=== PATIENT | female | born 1940 | race Caucasian/White ===

== ENCOUNTER 2016-07-01 08:30 | Emergency (ER) | payer OTHER ==
[~2016-07-01] VITALS: Ht 157.5 cm; Wt 57.9 kg
[~2016-07-01 08:30] MED LIST: CIPRODEX OTIC7.5 ML BOTH EARS; IRON325 MG PO; LISINOPRIL20 MG PO; LISINOPRIL40 MG PO; LORTAB 5-325 M1 EACH PO; PANTOPRAZOLE SO40 MG PO; SKELAXIN800 MG PO; SUCRALFATE1 GM/10 ML PO; ZANTAC150 MG PO
[2016-07-01] MEDS ORDERED: IBUPROFEN600 MG PO (10:41)
[2016-07-01] MEDS ORDERED: FLEXERIL10 MG PO (10:41)
[2016-07-01] MEDS ORDERED: LIDODERM 5% P1 PATCH TD (10:41)
[2016-07-01 10:59] VITALS: BP 154/82
== END 2016-07-01 11:01 | disposition home or self-care (01) ==
LOC: EME 08:30
DX: S16.1XXA Strain of muscle, fascia and tendon at neck level, initial encounter (principal); X58.XXXA Exposure to other specified factors, initial encounter; G89.29 Other chronic pain; H92.02 Otalgia, left ear; Z96.22 Myringotomy tube(s) status; I10 Essential (primary) hypertension
CPT/HCPCS: 70490; 99281; 99284

== ENCOUNTER → 2017-10-16 | Outpatient (CLI) | payer OTHER ==
[~2017-10-16] MED LIST changes: +FLEXERIL10 MG PO; +IBUPROFEN600 MG PO; +LIDODERM 5% P1 PATCH TD
== END | disposition home or self-care (01) ==
LOC: NUC 08:30
DX: I25.10 Atherosclerotic heart disease of native coronary artery without angina pectoris (principal)
CPT/HCPCS: 78452; 93017; A9500; J2785

== ENCOUNTER 2017-11-21 09:53 | Day surgery (SDC) | payer OTHER ==
[~2017-11-21] VITALS: Ht 147.3 cm; Wt 58.0 kg
[~2017-11-21 09:53] MED LIST changes: +ASPIRIN81 M2 PO; +ATORVASTATIN CA20 MG PO; +ICY HOT PATCH1 PATCH TD; +MECLIZINE HCL25 MG PO; +METOPROLOL TART25 MG PO; +NITROSTAT0.4 MG SL; +TIZANIDINE HCL4 M1 PO
== END 2017-11-21 17:10 | disposition home or self-care (01) ==
LOC: CATH 09:53
DX: I25.10 Atherosclerotic heart disease of native coronary artery without angina pectoris (principal); I10 Essential (primary) hypertension; E78.2 Mixed hyperlipidemia; K21.9 Gastro-esophageal reflux disease without esophagitis
CPT/HCPCS: C1769; C1887; J1644; J2250; J3010

== ENCOUNTER 2017-12-10 01:59 | Observation (INO) | payer OTHER ==
[~2017-12-10] VITALS: Ht 152.4 cm; Wt 112.6 kg
[2017-12-10 03:48] LABS: HEMATOCRIT 34.3 % (36.0-46.0); HEMOGLOBIN 11.6 G/DL (11.9-15.5); MCH 31.8 PG (29.0-34.0); MCHC 33.8 G/DL (30.0-36.0); PLATELET COUNT 185 K/uL (156-360); RBC DIS.WIDTH-CV 11.9 % (11.8-14.6); RBC DIS.WIDTH-SD 41.4 % (39-53); RED BLOOD COUNT 3.65 M/uL (3.80-5.20); WHITE BLOOD COUNT 7.1 K/uL (4.1-10.2)
[2017-12-10 03:56] LABS: ALBUMIN 3.7 g/dL (3.2-4.8); CHLORIDE 104 mEq/L (99-109); POTASSIUM 4.4 mEq/L (3.7-5.4); SODIUM 135 mEq/L (136-147)
[2017-12-10 03:59] LABS: GLUCOSE 125 mg/dL (70-99); TOTAL PROTEIN 6.4 g/dL (6.4-8.3)
[2017-12-10 04:01] LABS: TOTAL BILIRUBIN 0.3 mg/dL (0.0-1.0)
[2017-12-10 04:02] LABS: ALKALINE PHOSPHATASE 97 IU/L (3-129); CREATININE 0.7 mg/dL (0.6-1.3); GFR ESTIMATE (CALCULATED) > 59 mL/min/
[2017-12-10 04:03] LABS: UREA NITROGEN (BUN) 18 mg/dL (9-23)
[2017-12-10 04:04] LABS: AST (GOT) 30 IU/L (2-34)
[2017-12-10 04:05] LABS: ALT (GPT) 29 IU/L (3-49)
[2017-12-10 04:16] LABS: ERTH.SED.RATE 14 MM/HR (0-30)
[2017-12-10] MEDS ORDERED: PROTONIX40 MG PO (04:19)
[2017-12-10 04:39] VITALS: BP 189/79
[2017-12-10 04:39] LABS: C-REACTIVE PROTEIN 1.3 MG/L (0-10)
[2017-12-10 05:25] VITALS: BP 176/72
[2017-12-10 08:49] VITALS: BP 145/65
[2017-12-10] MEDS ORDERED: BENADRYL25 MG PO (11:02)
== END 2017-12-10 12:00 | disposition home or self-care (01) ==
LOC: EME 01:59 → EDOF 03:46 → 4SOUTH 04:29
PROVIDERS: Physician Assistant
DX: T78.3XXA Angioneurotic edema, initial encounter (principal); I10 Essential (primary) hypertension; E78.5 Hyperlipidemia, unspecified; K21.9 Gastro-esophageal reflux disease without esophagitis; D64.9 Anemia, unspecified; Z87.11 Personal history of peptic ulcer disease; Z88.2 Allergy status to sulfonamides; Z88.8 Allergy status to other drugs, medicaments and biological substances
CPT/HCPCS: 80053; 85027; 85651; 86140; 86160; 99281; 99284; G0378; J0360; J1200; J2930; J7030; J7040; S0028

== ENCOUNTER 2017-12-16 16:53 | Emergency (ER) | payer OTHER ==
[~2017-12-16] VITALS: Ht 152.4 cm; Wt 58.0 kg
[~2017-12-16 16:53] MED LIST changes: +BENADRYL25 MG PO; +PROTONIX40 MG PO
[2017-12-16 18:02] LABS: HEMATOCRIT 38.3 % (36.0-46.0); HEMOGLOBIN 13.1 G/DL (11.9-15.5); MCH 31.8 PG (29.0-34.0); MCHC 34.2 G/DL (30.0-36.0); RBC DIS.WIDTH-CV 12.1 % (11.8-14.6); RBC DIS.WIDTH-SD 41.7 % (39-53); RED BLOOD COUNT 4.12 M/uL (3.80-5.20); WHITE BLOOD COUNT 9.4 K/uL (4.1-10.2)
[2017-12-16 18:21] LABS: PLATELET COUNT 258 K/uL (156-360)
[2017-12-16 18:27] LABS: ALBUMIN 4.1 g/dL (3.2-4.8); SODIUM 132 mEq/L (136-147)
[2017-12-16 18:28] LABS: CHLORIDE 91 mEq/L (99-109)
[2017-12-16 18:29] LABS: GLUCOSE 140 mg/dL (70-99)
[2017-12-16 18:33] LABS: ALKALINE PHOSPHATASE 104 IU/L (3-129); CREATININE 0.8 mg/dL (0.6-1.3); GFR ESTIMATE (CALCULATED) > 59 mL/min/; TROP-I INTERPRETATION NEGATIVE; TROPONIN-I < 0.01 ng/mL (0.0-0.30)
[2017-12-16 18:34] LABS: UREA NITROGEN (BUN) 21 mg/dL (9-23)
[2017-12-16 18:35] LABS: AST (GOT) 22 IU/L (2-34)
[2017-12-16 18:36] LABS: ALT (GPT) 23 IU/L (3-49); LIPASE 18 U/L (1.0-51.0)
[2017-12-16 18:47] LABS: TOTAL BILIRUBIN 0.7 mg/dL (0.0-1.0); TOTAL PROTEIN 7.8 g/dL (6.4-8.3)
[2017-12-16 19:27] LABS: APPEARANCE CLEAR ((CLEAR)); BILIRUBIN NEGATIVE; BLOOD NEGATIVE; COLOR COLORLESS ((YELLOW)); GLUCOSE (STRIP) NEGATIVE; KETONES NEGATIVE; LEUKOCYTES NEGATIVE; NITRITE NEGATIVE; PROTEIN (STRIP) NEGATIVE; SPECIFIC GRAVITY 1.008 (1.000-1.030); UROBILINOGEN 0.2 MG/DL (0.2-1.0)
[2017-12-16] MEDS ORDERED: REGLAN5 MG PO (22:48)
[2017-12-16 23:25] VITALS: BP 141/82
== END 2017-12-16 23:28 | disposition home or self-care (01) ==
LOC: EME 16:53
PROVIDERS: Nurse Practitioner Family
DX: R11.2 Nausea with vomiting, unspecified (principal); K44.9 Diaphragmatic hernia without obstruction or gangrene; E87.1 Hypo-osmolality and hyponatremia; N28.1 Cyst of kidney, acquired; K57.30 Diverticulosis of large intestine without perforation or abscess without bleeding; I10 Essential (primary) hypertension; E78.5 Hyperlipidemia, unspecified; Z79.82 Long term (current) use of aspirin; Z88.2 Allergy status to sulfonamides
CPT/HCPCS: 74177; 80053; 81003; 83605; 83690; 84484; 85027; 93005; 99281; 99285; J2405; J2765; J7030